=== PATIENT | male | born 1980 | race Asian ===

== ENCOUNTER 2020-04-07 13:53 | Emergency (ER) | payer OTHER ==
[~2020-04-07] VITALS: Ht 165.1 cm; Wt 63.5 kg
[2020-04-07 14:48] VITALS: BP 133/86
== END 2020-04-07 15:16 | disposition home or self-care (01) ==
LOC: ER 14:01
DX: B34.9 Viral infection, unspecified (principal); Z98.890 Other specified postprocedural states; Z60.2 Problems related to living alone